=== PATIENT | male | born 1985 | race Caucasian/White ===

== ENCOUNTER 2018-11-26 00:54 | Emergency (ER) | payer MEDICARE, MEDICAID, OTHER, SELFPAY ==
[2018-11-26 00:55] VITALS: BP 145/89; PULSE 77; RESP 20; TEMP 36.7; O2SAT 95
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
[2018-11-26 01:12] VITALS: RESP 20
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
[2018-11-26] MEDS: Albuterol/Ipratropium 3 ML UPD VIAL UPD (01:23)
[2018-11-26 01:55] VITALS: BP 117/64; PULSE 66; RESP 16; TEMP 37; O2SAT 96
--- NOTE | 2018-11-26 08:48 | PDOC.ERCMPRO ---
Care Management Progress Note 11/26-Austin needed assistance with transportation. He is from the [place] area. He arrived by ambulance. Austin stated he was driving his car and became dizzy (please see provider note). Austin tried calling everyone he could throughout the night but could not get through. He spent the evening in the ED waiting room. This CM called [facility] but they are unavailable to transport. Called [facility] and spoke with Cecily. Cecily stated she would send a private parcel post truck driver to pickle cutter Austin and bring him to his car in [place]. [facility] will pay for the [facility] transportation. RCT authorization form completed and faxed to [place] (at [facility]'s request) [phone]. Discussed above with Austin and he is in agreement with plan.
--- NOTE | 2018-11-26 08:52 | CMPROGNOTE_ITS ---
Care Management Progress Note 11/26-Austin needed assistance with transportation. He is from the [place] area. He arrived by ambulance. Austin stated he was driving his car and became dizzy (please see provider note). Austin tried calling everyone he could throughout the night but could not get through. He spent the evening in the ED waiting room. This CM called [facility] but they are unavailable to transport. Called [facility] and spoke with Cecily. Cecily stated she would send a private truck driver heavy to worm picker Austin and bring him to his car in [place]. [facility] will pay for the [facility] transportation. RCT authorization form completed and faxed to [place] (at [facility]'s request) [phone]. Discussed above with Austin and he is in agreement with plan.
== END 2018-11-26 01:58 | disposition home or self-care (01) ==
PROVIDERS: Emergency Provider Student in an Organized Health Care Education/Training Program; PCP Physician Assistant
DX: R53.1 Weakness (principal); Z72.4 Inappropriate diet and eating habits; G80.9 Cerebral palsy, unspecified
CPT/HCPCS: 36416; 82962; 93005; 94640; 99283; 93010; J7620